=== PATIENT | female | born 1970 | race Caucasian/White ===

== ENCOUNTER 2018-08-21 07:13 | Day surgery (SDC) | payer MEDICAID, OTHER ==
[2018-08-21] VITALS (8 sets, daily range): BP systolic 107–126; BP diastolic 67–81; PULSE 66–80; RESP 16–24; Ht 149.9 cm; Wt 61.9 kg
[~2018-08-21] VITALS: Ht 149.9 cm; Wt 61.9 kg
[~2018-08-21 07:13] MED LIST: BALANCED SALT SOLN 15 ML OPH IRRIG ONE
[2018-08-21] MEDS ORDERED: TETRACAINE 0.5% 4 ML OPH RIGHT EYE ONE (08:00)
[2018-08-21] MEDS ORDERED: MITOMYCIN 5 MG INJ OP ONE (08:00)
[2018-08-21] MEDS ORDERED: LEVO25TA6 ORAL (08:07)
--- NOTE | 2018-08-21 08:31 | PREAC ---
Date/Time of Note Date/Time of Note DATE: 08/21/18 TIME: 08:30 Anesthesia Eval and Record Evaluation Time Pre-Procedure Interview DATE: 08/21/18 TIME: 08:30 Age 48 Sex female NPO: 8 hrs Preoperative diagnosis R eye pterygium Planned procedure R eye pterygium excision Past Medical History Past Medical History: Includes Endo: Hypothyroid Surgery & Anesthesia Issues No known issue Meds Anticoagulation: No Beta Julito within 24 hr: No Reason Beta Julito not given: Pt. not on B-Julito Reported Medications Levothyroxine Sodium* (Levothyroxine Sodium*) 25 Mcg Tablet, 1 TAB ORAL DAILY 08/21/18 Meds reviewed: Yes Allergies Coded Allergies: No Known Allergy (Unverified , 08/20/18) Allergies Reviewed: Yes Labs/Studies Labs Reviewed: Reviewed by anesthesiologist test: N/A Pre-procedure Exam Airway: Adequate mouth opening, Adequate thyromental dist Mallampati: Mallampati II Teeth: Abnormal (lower partials removed) Lung: Normal Heart: Normal ASA Physical Status ASA physical status: 2 Emergency: None Planned Anesthetic General/MAC: MAC Pre-operative Attestations Prior to commencing anesthesia and surgery, the patient was re-evaluated, there was verification of: *The patient's identity *The results of appropriate recent lab work and preoperative vital signs *The above evaluation not changing prior to induction *Anesthetic plan, risk benefits, alternative and complications discussed with patient/family; questions answered; patient/family understands, accepts and wishes to proceed. GUNNER GRANADOS Aug 21, 2018 08:31
[2018-08-21] MEDS ORDERED: TOBRAMYCIN/DEXAMETH 3.5 GM OPH OINT ONE (08:36)
[2018-08-21] MEDS ORDERED: PHENYLephrine 10% 5 ML OPH RIGHT EYE ONE (08:39)
[2018-08-21] MEDS ORDERED: PROPOFOL 20 ML ONE (08:43)
[2018-08-21] MEDS ORDERED: LIDOCAINE 2% (SDV) 5 ML INJ ONE (08:43)
[2018-08-21] MEDS ORDERED: MIDAZOLAM 1 MG/ML 2 ML INJ ONE (08:43)
--- NOTE | 2018-08-21 08:49 | HPN ---
Date/Time of Note Date/Time of Note DATE: 08/21/18 TIME: 08:49 Interval H&P Admission Note Pt. seen H&P reviewed: No system changes RUPERTO PONCE MD Aug 21, 2018 08:49
[2018-08-21] MEDS ORDERED: LIDOCAINE 2%/EPI (MDV) 20ML INJ INJ ONE (08:59)
[2018-08-21] MEDS ORDERED: ALBUTEROL 0.083% (NEB) 2.5 MG/3 ML AMP HHN PRN (09:00)
[2018-08-21] MEDS ORDERED: ACETAMINOPHEN 325 MG TAB PO PRN (09:00)
[2018-08-21] MEDS ORDERED: OXYCODONE/ACETAMINOPHEN (5/325) TAB PO PRN (09:00)
[2018-08-21] MEDS ORDERED: ONDANSETRON 4 MG INJ IV PRN (09:00)
[2018-08-21] MEDS ORDERED: LABETALOL HCL 20MG INJ IV PRN (09:00)
[2018-08-21] MEDS ORDERED: FENTAnyl 50 MCG/ML VIAL IV PRN (09:00)
[2018-08-21] MEDS ORDERED: hydrALAzine 20 MG INJ IV PRN (09:00)
[2018-08-21] MEDS ORDERED: DIPHENHYDRAMINE 50 MG INJ IV PRN (09:00)
[2018-08-21] MEDS ORDERED: ACETAMINOPHEN 500 MG TAB PO PRN (09:00)
[2018-08-21] MEDS ORDERED: TOBRAMYCIN/DEXAMETH 3.5 GM OPH OINT RIGHT EYE ONE (09:01)
[2018-08-21] MEDS ORDERED: PROPOFOL 40 ML ONE (09:27)
--- NOTE | 2018-08-21 09:42 | HPN ---
Date/Time of Note Date/Time of Note DATE: 08/21/18 TIME: 09:40 Interval H&P Admission Note Pt. seen H&P reviewed: No system changes RUPERTO PONCE MD Aug 21, 2018 09:42
--- NOTE | 2018-08-21 09:43 | PAC ---
Date/Time of Note Date/Time of Note DATE: 08/21/18 TIME: 09:41 Post-Anesthesia Notes Post-Anesthesia Note Last documented vital signs Vital Signs Date Temp Pulse Resp B/P Pulse Ox O2 O2 Flow FiO2 Time (MAP) Delivery Rate 08/21/18 97.3 98.7 69 76 16 16 125/81 100 100 100 RA 07:30 093 (96) 107 8 / Activity: WNL Respiratory function: WNL Cardiovascular function: WNL Mental status: Baseline Pain reasonably controlled: Yes Hydration appropriate: Yes Nausea/Vomiting absent: Yes GUNNER GRANADOS Aug 21, 2018 09:43
--- NOTE | 2018-08-21 09:51 | SIPON ---
Date/Time of Note Date/Time of Note DATE: 08/21/18 TIME: 09:44 Operative Report Preoperative Diagnosis pterygium right eye Postoperative Diagnosis same Operation/Procedure Performed 1. excision of pterygium 2. application of MMC 3' clsure of defect with advancement flaps Surgeon see signature line purchasing assistant none Anesthesia: MAC Estimated blood loss: none Transfusion Required none Specimen none Grafts/Implants none Complications none RUPERTO PONCE MD Aug 21, 2018 09:51
--- NOTE | 2018-08-21 10:05 | OPR ---
DATE OF OPERATION: 08/21/2018 SURGEON: Gala Arora M.D. CUSTOMER PROJECT MANAGER: None. PREOPERATIVE DIAGNOSIS: Pterygium, right eye. POSTOPERATIVE DIAGNOSIS: Pterygium, right eye. OPERATION: Excision of pterygium, right eye; application of mitomycin C; closure of defect with conj unctival advancement flaps. DESCRIPTION OF PROCEDURE: Following standard preparation and draping of the patient, a solid-blade l id speculum was placed for immobilization of the lids. A small amount of 2% Xylocaine with epinephri ne was injected beneath the body of the pterygium so as to elevate it from the underlying sclerae. A fter adequate local anesthesia was obtained, Josselin scissors were simply used to make an incision a long the edges of the pterygium, amputating the body approximately 1 cm posterior to the limbus. At the limbus, the major portion of the tissue was simply excised using sharp scissors. Using a rotating apple bur, all of the scar tissue on the cornea was removed down to clear cornea. At this point, bleeding points were secured with the heat cautery. Mitomycin C (0.2 mg/ml) was now applied to the limbal regions for three minutes. After three minutes, the eye was copiously irrigate d with balanced salt solution. A peritomy was now performed both superiorly and inferiorly and relax ing incisions made at approximately the 6 and 12 o'clock positions. The undermining conjunctiva was now pulled both superiorly and inferiorly so as to close the previously made defect from which the pt erygium had been removed. Sutures of interrupted 8-0 Vicryl were used and a bite of the underlying s clera was taken so as to ensure adequate maintenance of the flaps in a nonmovable position. Betadine 5% solution was placed on the eye, along with TobraDex ointment. A light pressure dressing was applied, and the patient returned to the recovery room in satisfactory condition. Dictated By: GALA CHING/EDMUND Conf#: [id number] DID#: [id number] CC: GALA ARORA MD;*EndCC*
[2018-08-21] MEDS ORDERED: HYDROCODONE/APAP (5/325) TAB PO SCH (11:00)
[2018-08-21] MEDS ORDERED: TOBRAMYCIN/DEXAMETH 2.5 ML OPH OPER SCH (11:30)
[2018-08-21] MEDS ORDERED: TOBRAMYCIN/DEXAMETH 3.5 GM OPH OINT OPER SCH (21:00)
== END 2018-08-21 11:00 | disposition home or self-care (01) ==
LOC: SDS 07:13
PROVIDERS: ATTEND Ophthalmology
DX: H11.001 Unspecified pterygium of right eye (principal); E03.9 Hypothyroidism, unspecified
CPT/HCPCS: 65426; J2250; J9280; Z7512; Z7610